=== PATIENT | male | born 1965 | race African-American/Black ===

== ENCOUNTER → 2020-01-28 | Outpatient (CLI) | payer OTHER ==
[2015-05-25 14:13] VITALS: BP 118/77
--- NOTE | 2020-01-28 15:30 | RAD ---
XR KNEE_RT 1-2 VIEWS 01/28/2020 11:13 AM INDICATION: PVCs attenuating, arthritis COMPARISON: None available. TECHNIQUE: 2 views of the right knee are provided. FINDINGS/ IMPRESSION: 1. No significant knee joint effusion. 2. Mild medial femorotibial and patellofemoral osteoarthrosis with patellofemoral marginal osteophyto sis compatible with mild osteoarthrosis. 3. There is no acute fracture or dislocation. Bone mineralization is within normal limits. Regional s oft tissues are within normal limits. There is no soft tissue gas or osseous erosion. No radiopaque f oreign body. Electronically signed by: Frida Bacon MD (01/28/2020 3:27 PM) [facility]
== END ==
LOC: RAD 10:56
PROVIDERS: ATTEND Family Medicine
DX: M17.11 Unilateral primary osteoarthritis, right knee (principal)
CPT/HCPCS: 73560